=== PATIENT | female | born 1970 | race Caucasian/White ===

== ENCOUNTER → 2016-06-25 | Outpatient (REF) | payer OTHER ==
[2016-06-25 12:53] LABS: ANION GAP 9 MEQ/L (8-16); BLOOD UREA NITROGEN 15 MG/DL (7-18); CALCIUM LEVEL 9.2 MG/DL (8.5-10.1); CARBON DIOXIDE LEVEL 30 MEQ/L (21-32); CHLORIDE LEVEL 103 MEQ/L (98-107); CREATININE FOR GFR 1.05 MG/DL (0.55-1.02); GLOMERULAR FILTRATION RATE > 60.0 (>58); GLUCOSE, FASTING 87 MG/DL (70-105); POTASSIUM SERUM 4.6 MEQ/L (3.5-5.1); SODIUM LEVEL 142 MEQ/L (136-145)
== END | disposition home or self-care (01) ==
LOC: M SFHCPLAZ 09:30
PROVIDERS: ATTEND Physician Assistant
DX: B36.0 Pityriasis versicolor (principal); F41.9 Anxiety disorder, unspecified

== ENCOUNTER → 2016-10-24 | Outpatient (REF) | payer OTHER ==
[2016-10-24 11:38] LABS: ALBUMIN/GLOBULIN RATIO 1.14 (1.00-1.93); BILIRUBIN,TOTAL 0.4 MG/DL (0.2-1.0); CALCIUM LEVEL 8.8 MG/DL (8.5-10.1); CREATININE FOR GFR 1.07 MG/DL (0.55-1.02); GLOMERULAR FILTRATION RATE 58.8 (>58); POTASSIUM SERUM 4.6 MEQ/L (3.5-5.1); TOTAL PROTEIN 7.5 GM/DL (6.4-8.2)
== END ==
LOC: M SFHCPLAZ 08:37
PROVIDERS: ATTEND Physician Assistant
DX: E78.2 Mixed hyperlipidemia (principal); R73.09 Other abnormal glucose; E55.9 Vitamin D deficiency, unspecified

== ENCOUNTER → 2017-01-17 | Outpatient (REF) | payer OTHER ==
[2017-01-17 12:47] LABS: ANION GAP 6 MEQ/L (8-16); BLOOD UREA NITROGEN 17 MG/DL (7-18); CALCIUM LEVEL 8.3 MG/DL (8.5-10.1); CARBON DIOXIDE LEVEL 28 MEQ/L (21-32); CHLORIDE LEVEL 107 MEQ/L (98-107); CREATININE FOR GFR 0.99 MG/DL (0.55-1.02); GLOMERULAR FILTRATION RATE > 60.0 (>58); GLUCOSE, FASTING 83 MG/DL (70-105); POTASSIUM SERUM 4.5 MEQ/L (3.5-5.1); SODIUM LEVEL 141 MEQ/L (136-145)
== END ==
LOC: M SFHCPLAZ 09:00
PROVIDERS: ATTEND Physician Assistant
DX: I10 Essential (primary) hypertension (principal)

== ENCOUNTER → 2017-10-04 | Outpatient (REF) | payer OTHER ==
[2017-10-04 10:57] LABS: ALBUMIN/GLOBULIN RATIO 1.08 (1.00-1.93); ALKALINE PHOSPHATASE 92 U/L (45-117); ALT/SGPT 23 U/L (12-78); ANION GAP 5 MEQ/L (8-16); AST/SGOT 11 U/L (7-37); BILIRUBIN,TOTAL 0.3 MG/DL (0.2-1.0); BLOOD UREA NITROGEN 18 MG/DL (7-18); CALCIUM LEVEL 8.8 MG/DL (8.5-10.1); CARBON DIOXIDE LEVEL 30 MEQ/L (21-32); CHLORIDE LEVEL 105 MEQ/L (98-107); CHOLESTEROL LEVEL 210 MG/DL (<200); CHOLESTEROL RISK RATIO 4.772 (<5); CREATININE FOR GFR 1.08 MG/DL (0.55-1.30); FREE T4 0.88 NG/DL (0.76-1.46); GLOMERULAR FILTRATION RATE 58.1 (>58); GLUCOSE, FASTING 92 MG/DL (70-100); HDL CHOLESTEROL 44 MG/DL (>40); LDL CHOLESTEROL 108.4 MG/DL (<100); NON-HDL-C 166 MG/DL; POTASSIUM SERUM 4.6 MEQ/L (3.5-5.1); SODIUM LEVEL 140 MEQ/L (136-145); TOTAL PROTEIN 7.7 GM/DL (6.4-8.2); TRIGLYCERIDES LEVEL 288 MG/DL (<150)
[2017-10-04 11:11] LABS: MALB URINE SIEMENS 17.4 MG/L; MAU/CREAT RATIO 6.6 MCG/MG (0.0-30.0)
== END ==
LOC: M SFHCPLAZ 08:49
DX: E78.5 Hyperlipidemia, unspecified (principal); I10 Essential (primary) hypertension
CPT/HCPCS: 84443

== ENCOUNTER → 2018-05-12 | Outpatient (REF) | payer OTHER ==
[2018-05-12 12:40] LABS: ALBUMIN 3.7 GM/DL (3.2-5.2); ALT/SGPT 20 U/L (12-78); BILIRUBIN,TOTAL 0.3 MG/DL (0.2-1.0); BLOOD UREA NITROGEN 18 MG/DL (7-18); CALCIUM LEVEL 8.5 MG/DL (8.5-10.1); CARBON DIOXIDE LEVEL 29 MEQ/L (21-32); CHLORIDE LEVEL 105 MEQ/L (98-107); CREATININE FOR GFR 1.03 MG/DL (0.55-1.30); GLOMERULAR FILTRATION RATE > 60.0 (>58); GLUCOSE, FASTING 98 MG/DL (70-100); POTASSIUM SERUM 4.4 MEQ/L (3.5-5.1); SODIUM LEVEL 140 MEQ/L (136-145); TOTAL PROTEIN 7.3 GM/DL (6.4-8.2)
[2018-05-12 12:43] LABS: TOTAL 25(OH) VITAMIN D 41.8 NG/ML (30.0-100.0)
== END ==
LOC: M SFHCPLAZ 07:36
PROVIDERS: ATTEND Nurse Practitioner Family
DX: I10 Essential (primary) hypertension (principal); E55.9 Vitamin D deficiency, unspecified

== ENCOUNTER → 2018-12-29 | Outpatient (REF) | payer OTHER ==
[2018-12-29 14:19] LABS: ALBUMIN 4.1 GM/DL (3.2-5.2); BILIRUBIN,TOTAL 0.2 MG/DL (0.2-1.0); CHOLESTEROL RISK RATIO 3.977 (<5); CREATININE FOR GFR 1.06 MG/DL (0.55-1.30); GLOMERULAR FILTRATION RATE 58.9 (>58); POTASSIUM SERUM 4.4 MEQ/L (3.5-5.1); TOTAL PROTEIN 7.7 GM/DL (6.4-8.2)
[2018-12-29 14:26] LABS: TOTAL 25(OH) VITAMIN D 49.2 NG/ML (30.0-100.0)
== END ==
LOC: M SFHCPLAZ 09:12
PROVIDERS: ATTEND Nurse Practitioner Family
DX: I10 Essential (primary) hypertension (principal); E78.5 Hyperlipidemia, unspecified; E55.9 Vitamin D deficiency, unspecified

== ENCOUNTER 2019-10-23 00:38 | Emergency (ER) | payer OTHER ==
[~2019-10-23] VITALS: Ht 172.7 cm; Wt 86.0 kg
[2019-10-23 00:38] VITALS: BP 175/89
[2019-10-23] MEDS ORDERED: VITA200015 (00:51)
[2019-10-23] MEDS ORDERED: BUSP30TA (00:51)
[2019-10-23] MEDS ORDERED: PARO40TA2 (00:51)
[2019-10-23] MEDS ORDERED: LOSA50TA88 (00:51)
[2019-10-23] MEDS ORDERED: SIMV40TA20 (00:51)
[2019-10-23] MEDS ORDERED: HYDR50TA70 (00:51)
[2019-10-23] MEDS ORDERED: BACITRACIN OINTMENT 30GM TUBE TOP STA (01:04)
[2019-10-23] MEDS ORDERED: METAL LOCK LOOP XX ONE (01:12)
[2019-10-23] MEDS ORDERED: ALPRAZolam 0.5 MG TAB PO ONE ×2 (01:15→02:00)
[2019-10-23] MEDS ORDERED: FLON1SPR NARES (01:50)
== END 2019-10-23 02:33 | disposition home or self-care (01) ==
LOC: M ED 00:38
DX: F41.0 Panic disorder [episodic paroxysmal anxiety] (principal); H65.91 Unspecified nonsuppurative otitis media, right ear; T24.001A Burn of unspecified degree of unspecified site of right lower limb, except ankle and foot, initial encounter; X58.XXXA Exposure to other specified factors, initial encounter; Y92.9 Unspecified place or not applicable; I10 Essential (primary) hypertension; E78.5 Hyperlipidemia, unspecified; F17.200 Nicotine dependence, unspecified, uncomplicated; F32.9 Major depressive disorder, single episode, unspecified; Z79.899 Other long term (current) drug therapy

== ENCOUNTER 2020-04-03 13:45 | Emergency (ER) | payer OTHER ==
[~2020-04-03] VITALS: Ht 172.7 cm; Wt 91.0 kg
[~2020-04-03 13:45] MED LIST: BUSP30TA; FLON1SPR NARES; HYDR50TA70; LOSA50TA88; PARO40TA2; SIMV40TA20; VITA200015
[2020-04-03] MEDS ORDERED: ROBA750T4 PO (14:20)
[2020-04-03 14:24] VITALS: BP 142/86
[2020-04-03] MEDS ORDERED: KETO10TAB PO (14:26)
== END 2020-04-03 14:33 | disposition home or self-care (01) ==
LOC: M ED 13:45
DX: S39.012A Strain of muscle, fascia and tendon of lower back, initial encounter (principal); X50.1XXA Overexertion from prolonged static or awkward postures, initial encounter; Y92.009 Unspecified place in unspecified non-institutional (private) residence as the place of occurrence of the external cause; Y99.9 Unspecified external cause status; I10 Essential (primary) hypertension; E78.00 Pure hypercholesterolemia, unspecified; F41.9 Anxiety disorder, unspecified; F32.9 Major depressive disorder, single episode, unspecified; F17.200 Nicotine dependence, unspecified, uncomplicated; Z79.899 Other long term (current) drug therapy

== ENCOUNTER 2020-06-28 19:44 | Emergency (ER) | payer OTHER ==
[~2020-06-28] VITALS: Ht 172.7 cm; Wt 94.5 kg
[~2020-06-28 19:44] MED LIST changes: +KETO10TAB PO; +ROBA750T4 PO
--- OUTSIDE RECORDS SUMMARY | 2020-06-28 19:52 | CCD ---
Author Author [facility] Organization [facility] Address Unknown Phone Unavailable Care Team Providers Care Law Enforcement Instructor Name Role Phone Olga Burgess Unavailable PROBLEMS Type Condition ICD9-CM Code [id number] Code Onset Dates Condition S tatus SNOMED Code Notes Problem Elevated blood pressure I10 Active 55220082 Problem Allergic rhinitis, unspecifi ed allergic rhinitis trigger, unspecified rhinitis seasonality J30.9 Active 85122369 Problem Dry eyes, bilateral H04.123 Active 197387968 Problem Nicotine dependence, cigarettes, uncomplicated F17 .210 Active 85359533 Problem Vitamin D deficiency E55.9 Active 74353771 Problem HTN (hypertension) I10 Active 79605363 Problem Hyperlipidemia, unspecified hyperlipidemia type E7 8.5 Active 32154377 Problem Depression, unspecified depression type F32.9 Active 99051318 ALLERGIES Allergen (clinical drug ingredient) Drug/Non Drug Allergy do cumented on EMR Reaction Allergy Type Onset Date Status chlorthalidone Chlorthalidone([facility] Code:[address]-48) palpatations Drug Allergy Active ENCOUNTERS from 1970 to 2020-04-12 Encounter Location Date Provider Diagnosis [address] [place] [address] Mar, Olga Aditya IMMUNIZATIONS Vaccine Route Administration Date Status Influenza (6mo & up) Fluzone Unknown Jun 18, 2016 Oth ers Influenza (6mo & up) Fluzone Unknown Mar 07, 2016 Oth ers SOCIAL HISTORY Tobacco Use: Social History Observation Description Date Details (start date - stop date) Current Smoker Sex Assigned At : Social History Observation Description Sex Assigned At Unknown Audit Question Answer Notes Total Score: 1 Interpretation: Alcohol Education Language: Question Answer Notes Languages spoken: Syrian Anglican: Question Answer Notes Anglican 33 None Sexual Hx: Question Answer Notes Had sex in the last 12 months (vaginal, oral, or anal)? No LMP: 07/10/2019 Have you ever had an STD? Yes Chlamydia? Yes Drug and Alcohol Question Answer Notes Total Score: 0 Interpretation: No problems reported Alcohol Screening: Question Answer Notes Did you have a drink containing alcohol in the past year? Ye s Points 2 Interpretation Negative How often did you have six or more drinks on one occas ion in the past year? Less than monthly (1 point) How many drinks did you have on a typica l day when you were drinking in the past year? 1 or 2 (0 points) How often did you have a drink containing alcohol in t he past year? Monthly or less (1 point) Tobacco Use: Question Answer Notes Are you a: current smoker Patient counseled on the dangers of tobacco use and urged to quit: 12/29/2018 How many cigarettes a day do you smoke? 11-20 Are you interested in quitting? Not ready to quit Counseled the patient on smoking effects, education provided 12/29/2018 REASON FOR REFERRAL No Information VITAL SIGNS No information MEDICATIONS Medication SIG (Take, Route, Frequency, Duration) Notes Start Da te End Date Status Losartan Potassium 50 MG 1 tablet Orally Once a day for 90 day(s) Active HydrOXYzine HCl 25 MG 1 tablet as needed Orally every 8 hrs Active Simvastatin 40 MG 1 tablet in the evening Orally once a day for 30 Active BusPIRone HCl 10 MG 1 tablet Orally Twice a day Active Vitamin D3 Super Strength 50 MCG (2000 UT) TAKE 1 TABL ET BY MOUTH ONCE DAILY for 30 Active Artificial Tears 0.2-0.2-1 % 1-2 drops in both eyes Op hthalmic four times daily as needed for 30 Days Jul, Active Vitamin D 2000 UNIT 1 tab(s) Orally daily for 30 Active Paroxetine HCl 40 MG 1 tablet in the morning Orally Once a day Active PROCEDURES No Information RESULTS No Results REASON FOR VISIT No show MEDICAL (GENERAL) HISTORY Type Description Date Medical History Panic disorder/anxiety/depression Medical History Depressive disorder, not elsewhere class ified Medical History HTN Medical History HLD Medical History Vitamin D deficiency Surgical History tubal ligation 2001 Hospitalization History childbirth 1988 Hospitalization History childbirth 1990 Hospitalization History childbirth 2000 Hospitalization History childbirth 2001 Goals Section No Information Health Concerns No Information MEDICAL EQUIPMENT No Information MENTAL STATUS No Information FUNCTIONAL STATUS No Information ASSESSMENTS No Information PLAN OF TREATMENT Medication Medication Name Sig Start Date Stop Date Losartan Potassium 50 MG 1 tablet Orally Once a day for 90 day(s ) Artificial Tears 0.2-0.2-1 % 1-2 drops in both eyes Op hthalmic four times daily as needed for 30 Days Jul, Simvastatin 40 MG 1 tablet in the evening Orally once a day for 30 Vitamin D3 Super Strength 50 MCG (1999) TAKE 1 TABL ET BY MOUTH ONCE DAILY for 30 Insurance Providers Payer Name Payer Address Payer Phone Insured Name Patient Relati onship to Insured Coverage Start Date Coverage End Date [facility] [address] [place] [address] KIKI BAHENA
--- OUTSIDE RECORDS SUMMARY | 2020-06-28 19:52 | CCD ---
Author Author [facility] Organization [facility] Address Unknown Phone Unavailable Care Team Providers Care Computer Systems Auditor Name Role Phone Olga Burgess Unavailable PROBLEMS Type Condition ICD9-CM Code [id number] Code Onset Dates Condition S tatus SNOMED Code Notes Problem Elevated blood pressure I10 Active 02447190 Problem Allergic rhinitis, unspecifi ed allergic rhinitis trigger, unspecified rhinitis seasonality J30.9 Active 40726770 Problem Dry eyes, bilateral H04.123 Active 844340237 Problem Nicotine dependence, cigarettes, uncomplicated F17 .210 Active 65608294 Problem Vitamin D deficiency E55.9 Active 95829686 Problem HTN (hypertension) I10 Active 29636191 Problem Hyperlipidemia, unspecified hyperlipidemia type E7 8.5 Active 23408251 Problem Depression, unspecified depression type F32.9 Active 08822747 ALLERGIES Allergen (clinical drug ingredient) Drug/Non Drug Allergy do cumented on EMR Reaction Allergy Type Onset Date Status chlorthalidone Chlorthalidone([facility] Code:[address]-92) palpatations Drug Allergy Active ENCOUNTERS from 1970 to 2020-04-05 Encounter Location Date Provider Diagnosis [facility] [address] [place] [address] Mar, Olga Aditya IMMUNIZATIONS Vaccine Route Administration [...] Education Language: Question Answer Notes Languages spoken: South Korean Catholic: Question Answer Notes Catholic 33 None Sexual Hx: Question Answer Notes [...] MEDICATIONS Medication SIG (Take, Route, Frequency, Duration) Start Date En d Date Status Losartan Potassium 50 MG 1 [...] Information RESULTS No Results REASON FOR VISIT ed visit [facility] d/c 04/03; low back pain MEDICAL (GENERAL) HISTORY Type Description Date Medical [...] 30 Vitamin D3 Super Strength 50 MCG (1999 UT) TAKE 1 TABL ET BY MOUTH ONCE DAILY for 30 Next Appt Details Provider Name:Olga Burgess 2020-04-12 07 :15:00 AM, [address] [place] [address], [phone], Insurance Providers Payer Name Payer Address Payer Phone Insured Name Patient Relati onship to Insured Coverage Start Date Coverage End Date [facility] [address] [place] [address] KIKI BAHENA
--- OUTSIDE RECORDS SUMMARY | 2020-06-28 19:52 | CCD ---
Author Author [facility] Organization [facility] Address Unknown Phone Unavailable Care Team Providers Care Geometry Professor Name Role Phone Olga Burgess Unavailable PROBLEMS Type Condition ICD9-CM Code PER42-BG Code Onset Dates Condition S tatus SNOMED Code Notes Problem Elevated blood pressure I10 Active 71604842 Problem Allergic rhinitis, unspecifi ed allergic rhinitis trigger, unspecified rhinitis seasonality J30.9 Active 35167396 Problem Dry eyes, bilateral H04.123 Active 563692600 Problem Nicotine dependence, cigarettes, uncomplicated F17 .210 Active 26320273 Problem Vitamin D deficiency E55.9 Active 65922473 Problem HTN (hypertension) I10 Active 73742697 Problem Hyperlipidemia, unspecified hyperlipidemia type E7 8.5 Active 19106538 Problem Depression, unspecified depression type F32.9 Active 01215208 ALLERGIES Allergen (clinical drug ingredient) Drug/Non Drug Allergy do cumented on EMR Reaction Allergy Type Onset Date Status chlorthalidone Chlorthalidone([facility] Code:[address]-03) palpatations Drug Allergy Active ENCOUNTERS from 1970 to 2020-05-05 Encounter Location Date Provider Diagnosis [facility] [address] [place] [address] Apr, Olga Aditya IMMUNIZATIONS Vaccine Route Administration Date [...] Education Language: Question Answer Notes Languages spoken: Burundian Mu-Ism: Question Answer Notes Mu-Ism 33 None Sexual Hx: Question Answer Notes [...] Notes Start Da te End Date Status Vitamin D3 Super Strength 50 MCG (2000 UT) TAKE 1 TABL ET BY MOUTH ONCE DAILY for 90 day(s) Active BusPIRone HCl 10 MG 1 tablet Orally Twice a day Active Paroxetine HCl 40 MG 1 tablet in the morning Orally Once a day Active Simvastatin 40 MG 1 tablet in the evening Orally once a day for 90 da y(s) Active Vitamin D 2000 UNIT 1 tab(s) Orally daily for 30 Active Artificial Tears 0.2-0.2-1 % 1-2 drops in both eyes Op hthalmic four times daily as needed for 30 Days Jul, Active HydrOXYzine HCl 25 MG 1 tablet as needed Orally every 8 hrs Active Losartan Potassium 50 MG 1 tablet Orally Once a day for 90 day(s) Active PROCEDURES No Information RESULTS No Results REASON FOR VISIT Vitamin D3 Super Strength 50 MCG (2000 UT), Losatan 50MG, Simvastatin 40MG MEDICAL (GENERAL) HISTORY Type Description Date Medical [...] Medication Name Sig Start Date Stop Date Vitamin D3 Super Strength 50 MCG (1999) TAKE 1 TABL ET BY MOUTH ONCE DAILY for 90 day(s) Artificial Tears 0.2-0.2-1 % 1-2 drops in both eyes Op hthalmic four times daily as needed for 30 Days Jul, Simvastatin 40 MG 1 tablet in the evening Orally once a day for 90 day(s) Losartan Potassium 50 MG 1 tablet Orally Once a day for 90 day(s ) Next Appt Details Provider Name:Olga Burgess, 2020-05-17 10 :00:00 AM, [address] [place] [address], [phone], Insurance Providers Payer Name Payer Address Payer Phone Insured Name Patient Relati onship to Insured Coverage Start Date Coverage End Date [facility] [address] [place] [phone] KIKI BAHENA self
--- OUTSIDE RECORDS SUMMARY | 2020-06-28 19:52 | CCD ---
Author Author [facility] Address Unknown Phone Unavailable Support Name Relationship Address Phone UE Next Of Kin Unknown Unavailable SELF EMPLOYED Next Of Kin Unknown RUCHI BAHENA Next Of Kin [id number] [place] [id number] FILIBERTO NASH Next Of Kin [address] [place] [id number] Re-disclosure Warning The records that you are about to access may contain information from federally-assisted alcohol or drug abuse programs. If such information is present, then the following federally mandated warning applies: This information has been disclosed to you from records protected by federal confidentiality rules (42 CFR part 2). The federal rules prohibit you from making any further disclosure of this information unless further disclosure is expressly permitted by the written consent of the person to whom it pertains or as otherwise permitted by 42 CFR part 2. A general authorization for the release of medical or other information is NOT sufficient for this purpose. The Federal rules restrict any use of the information to criminally investigate or prosecute any alcohol or drug abuse patient.The records that you are about to access may contain highly sensitive health information, the redisclosure of which is protected by Article 27-F of the [facility] Public Health law. If you continue you may have access to information: Regarding HIV / AIDS; Provided by facilities licensed or operated by the [facility] Office of Mental Health; or Provided by the [facility] Office for People With Developmental Disabilities. If such information is present, then the following [facility] mandated warning applies: This information has been disclosed to you from confidential records which are protected by state law. State law prohibits you from making any further disclosure of this information without the specific written consent of the person to whom it pertains, or as otherwise permitted by law. Any unauthorized further disclosure in violation of state law may result in a fine or residential sentence or both. A general authorization for the release of medical or other information is NOT sufficient authorization for further disc losure. Allergies and Adverse Reactions Type Description Substance Reaction Status Data Source(s ) Drug allergy Chlorthalidone Chlorthalidone palpatations Active e [facility] Encounters Encounter Providers Location Date Indications Data Source(s ) Unknown [address] [facility] [place] [address] 05/04/2020 12:00:00 AM EST eCW1 ([facility]) Unknown [address] [facility] [place] [address] 04/12/2020 12:00:00 AM EST eCW1 ([facility]) Unknown [address] [facility] [place] [address] 04/04/2020 12:00:00 AM EST eCW1 ([facility]) [facility] [address] [facility] [place] [address] 01/28/2020 12:00:00 AM EDT eCW1 ([facility]) Unknown [address] [facility] [place] [address] 11/03/2019 12:00:00 AM EDT eCW1 ([facility]) Unknown [address] [facility] [place] [address] 11/02/2019 12:00:00 AM EDT eCW1 ([facility]) Unknown [address] [facility] [place] [address] 10/27/2019 12:00:00 AM EDT eCW1 ([facility]) [facility] [address] [facility] [place] [address] 07/30/2019 12:00:00 AM EST eCW1 ([facility]) [facility] [address] [facility] [place] [address] 07/10/2019 12:00:00 AM EST eCW1 ([facility]) [facility] [address] [facility] [place] [address] 06/19/2019 12:00:00 AM EST eCW1 ([facility]) Medications Medication Brand Name Start Date Product Form Dose Route Admi nistrative Instructions Pharmacy Instructions Status Indications Reaction Description Data Source(s) 750 mg 04/03/2020 12:00:00 AM EST tablet 20 TAKE ONE TABLET BY MOUTH AT BEDTIME TAKE ONE TABLET BY MOUTH AT BEDTIME SOLD: 04/03/2020 [facility] 10 mg 04/03/2020 12:00:00 AM EST tablet 20 TAKE ONE TABLET BY MOUTH EVERY 6 HOURS NEEDED FOR PAIN TAKE ONE TABLET BY MOUTH EVERY 6 HOURS A S NEEDED FOR PAIN SOLD: 04/03/2020 [facility] 1 mg 03/13/2020 12:00:00 AM EDT tablet 4 TAKE ONE TABLET BY MOUTH THE NIGHT BEFORE AND 1 TABLET AN HOUR BEFORE APPOINTMENT MAXIMUM DAILY DOSE = 2 TAKE ONE TABLET BY MOUTH THE NIGHT BEFORE AND 1 TABLET AN HOUR BEFORE APPOINTMENT MAXIMUM DAILY DOSE = 2 SOLD: 03/13/2020 [facility] 500 mg 03/12/2020 12:00:00 AM EDT tablet 22 TAKE TWO TABLETS NOW, THEN TAKE ONE TABLET BY MOUTH THREE TIMES A DAY TAKE TWO TABLETS NOW, THEN TAKE ONE TABL ET BY MOUTH THREE TIMES A DAY SOLD: 03/13/2020 [facility] 50 mg 03/07/2020 12:00:00 AM EDT tablet 120 TAKE ONE TABLET BY MOUTH FOUR TIMES A DAY NEEDED FOR ANXIETY TAKE ONE TABLET BY MOUTH FOUR TIMES A DA Y NEEDED FOR ANXIETY SOLD: 03/13/2020 [facility] 50 mg 03/07/2020 12:00:00 AM EDT tablet 120 TAKE ONE TABLET BY MOUTH FOUR TIMES A DAY NEEDED FOR ANXIETY TAKE ONE TABLET BY MOUTH FOUR TIMES A DA Y NEEDED FOR ANXIETY SOLD: 04/18/2020 [facility] 30 mg 03/07/2020 12:00:00 AM EDT tablet 60 TAKE ONE TABLET BY MOUTH TWICE A DAY TAKE ONE TABLET BY MOUTH TWICE A DAY SOLD: 03/13/2020 [facility] 30 mg 03/07/2020 12:00:00 AM EDT tablet 60 TAKE ONE TABLET BY MOUTH TWICE A DAY TAKE ONE TABLET BY MOUTH TWICE A DAY SOLD: 04/18/2020 [facility] Paroxetine Hydrochloride 40 MG Oral Tablet PAROXETINE HCL 02/08/2020 12:00:00 AM EDT tablet 30 TAKE ONE TABLET BY MOUTH ROXANE DAY TAKE ONE TABLET BY MOUTH EVERY DAY SOLD: 02/10/2020 [facility] Paroxetine Hydrochloride 40 MG Oral Tablet PAROXETINE HCL 02/08/2020 12:00:00 AM EDT tablet 30 TAKE ONE TABLET BY MOUTH ROXANE TAKE ONE TABLET BY MOUTH EVERY DAY SOLD: 03/13/2020 [facility] 50 mg 01/29/2020 12:00:00 AM EDT tablet 30 TAKE ONE TABLET BY MOUTH EVERY DAY TAKE ONE TABLET BY MOUTH EVERY DAY SOLD: 04/03/2020 [facility] 50 mcg (2,000 unit) 01/29/2020 12:00:00 AM EDT tablet 30 TAKE ONE TABLET BY MOUTH EVERY DAY TAKE ONE TABLET BY MOUTH EVERY DAY SOLD: 03/05/2020 [facility] 50 mcg (2,000 unit) 01/29/2020 12:00:00 AM EDT tablet 30 TAKE ONE TABLET BY MOUTH EVERY DAY TAKE ONE TABLET BY MOUTH EVERY DAY SOLD: 01/31/2020 [facility] 40 mg 01/29/2020 12:00:00 AM EDT tablet 30 TAKE ONE TABLET BY MOUTH EVERY DAY TAKE ONE TABLET BY MOUTH EVERY DAY SOLD: 01/31/2020 [facility] 50 mcg (2,000 unit) 01/29/2020 12:00:00 AM EDT tablet 30 TAKE ONE TABLET BY MOUTH EVERY DAY TAKE ONE TABLET BY MOUTH EVERY DAY SOLD: 04/03/2020 [facility] 50 mg 01/29/2020 12:00:00 AM EDT tablet 30 TAKE ONE TABLET BY MOUTH EVERY DAY TAKE ONE TABLET BY MOUTH EVERY DAY SOLD: 01/31/2020 [facility] 40 mg 01/29/2020 12:00:00 AM EDT tablet 30 TAKE ONE TABLET BY MOUTH EVERY DAY TAKE ONE TABLET BY MOUTH EVERY DAY SOLD: 03/05/2020 [facility] 40 mg 01/29/2020 12:00:00 AM EDT tablet 30 TAKE ONE TABLET BY MOUTH EVERY DAY TAKE ONE TABLET BY MOUTH EVERY DAY SOLD: 04/03/2020 [facility] 50 mg 01/29/2020 12:00:00 AM EDT tablet 30 TAKE ONE TABLET BY MOUTH EVERY DAY TAKE ONE TABLET BY MOUTH EVERY DAY SOLD: 03/05/2020 [facility] 50 mg 11/30/2019 12:00:00 AM EDT tablet 120 TAKE ONE TABLET BY MOUTH FOUR TIMES A DAY NEEDED FOR ANXIETY TAKE ONE TABLET BY MOUTH FOUR TIMES A DA Y NEEDED FOR ANXIETY SOLD: 12/01/2019 [facility] 50 mg 11/30/2019 12:00:00 AM EDT tablet 120 TAKE ONE TABLET BY MOUTH FOUR TIMES A DAY NEEDED FOR ANXIETY TAKE ONE TABLET BY MOUTH FOUR TIMES A DA Y NEEDED FOR ANXIETY SOLD: 01/04/2020 [facility] 40 mg 11/30/2019 12:00:00 AM EDT tablet 30 TAKE ONE TABLET BY MOUTH EVERY EVENING TAKE ONE TABLET BY MOUTH EVERY EVENING SOLD: 01/04/2020 [facility] 40 mg 11/30/2019 12:00:00 AM EDT tablet 30 TAKE ONE TABLET BY MOUTH EVERY EVENING TAKE ONE TABLET BY MOUTH EVERY EVENING SOLD: 12/01/2019 [facility] 40 mg 11/30/2019 12:00:00 AM EDT tablet 30 TAKE ONE TABLET BY MOUTH EVERY DAY TAKE ONE TABLET BY MOUTH EVERY DAY SOLD: 01/04/2020 [facility] 40 mg 11/30/2019 12:00:00 AM EDT tablet 30 TAKE ONE TABLET BY MOUTH EVERY DAY TAKE ONE TABLET BY MOUTH EVERY DAY SOLD: 12/01/2019 [facility] 50 mg 11/03/2019 12:00:00 AM EDT tablet 30 TAKE ONE TABLET BY MOUTH EVERY DAY TAKE ONE TABLET BY MOUTH EVERY DAY SOLD: 01/04/2020 [facility] 50 mg 11/03/2019 12:00:00 AM EDT tablet 30 TAKE ONE TABLET BY MOUTH EVERY DAY TAKE ONE TABLET BY MOUTH EVERY DAY SOLD: 11/03/2019 [facility] 50 mg 11/03/2019 12:00:00 AM EDT tablet 30 TAKE ONE TABLET BY MOUTH EVERY DAY TAKE ONE TABLET BY MOUTH EVERY DAY SOLD: 12/01/2019 [facility] 50 mcg/actuation 2019 12:00:00 AM EDT spray,suspension 16 SPRAY 2 SPRAYS IN EACH NOSTRIL ONCE DAILY SPRAY 2 SPRAYS IN EACH NOSTRIL ONCE DAILY SOLD: 10/30/2019 [facility] Paroxetine Hydrochloride 40 MG Oral Tablet PAROXETINE HCL 10/11/2019 12:00:00 AM EDT tablet 30 TAKE ONE TABLET BY MOUTH ROXANE DAY TAKE ONE TABLET BY MOUTH EVERY DAY SOLD: 04/18/2020 [facility] 40 mg 10/11/2019 12:00:00 AM EDT tablet 30 TAKE ONE TABLET BY MOUTH EVERY DAY TAKE ONE TABLET BY MOUTH EVERY DAY SOLD: 10/13/2019 [facility] buspirone hydrochloride 30 MG Oral Tablet BUSPIRONE HCL 10/05/2019 12:00:00 AM EDT tablet 60 TAKE ONE TABLET BY MOUTH TWI CE A DAY TAKE ONE TABLET BY MOUTH TWICE A DAY SOLD: 10/13/2019 [facility] 50 mcg (2,000 unit) 09/12/2019 12:00:00 AM EDT tablet 30 TAKE ONE TABLET BY MOUTH EVERY DAY TAKE ONE TABLET BY MOUTH EVERY DAY SOLD: 09/16/2019 [facility] 50 mcg (2,000 unit) 09/12/2019 12:00:00 AM EDT tablet 30 TAKE ONE TABLET BY MOUTH EVERY DAY TAKE ONE TABLET BY MOUTH EVERY DAY SOLD: 10/13/2019 [facility] 40 mg 08/18/2019 12:00:00 AM EDT tablet 30 TAKE ONE TABLET BY MOUTH EVERY DAY TAKE ONE TABLET BY MOUTH EVERY DAY SOLD: 09/23/2019 [facility] 40 mg 08/18/2019 12:00:00 AM EDT tablet 30 TAKE ONE TABLET BY MOUTH EVERY DAY TAKE ONE TABLET BY MOUTH EVERY DAY SOLD: 08/23/2019 [facility] Glycerin 2 MG/ML / hypromellose 2 MG/ML / Polyethylene Glycol 400 10 MG/ML Ophthalmic Solution Artificial Tears 0.2-0.2-1 % Artificial Tears 0.2-0.2-1 % 07/30/2019 12:00:00 AM EST active Artificial Tears 0.2-0.2-1 % [facility] Glycerin 2 MG/ML / hypromellose 2 MG/ML / Polyethylene Glycol 400 10 MG/ML Ophthalmic Solution Artificial Tears 0.2-0.2-1 % Artificial Tears 0.2-0.2-1 % 07/30/2019 12:00:00 AM EST active 1-2 drops in both eyes eCW1 ([facility]) Glycerin 2 MG/ML / hypromellose 2 MG/ML / Polyethylene Glycol 400 10 MG/ML Ophthalmic Solution Artificial Tears 0.2-0.2-1 % Artificial Tears 0.2-0.2-1 % 07/30/2019 12:00:00 AM EST active Artificial Tears 0.2-0.2-1 % eCW1 [facility] Glycerin 2 MG/ML / hypromellose 2 MG/ML / Polyethylene Glycol 400 10 MG/ML Ophthalmic Solution Artificial Tears 0.2-0.2-1 % Artificial Tears 0.2-0.2-1 % 07/30/2019 12:00:00 AM EST active Artificial Tears 0.2-0.2-1 % eCW1 [facility]) Glycerin 2 MG/ML / hypromellose 2 MG/ML / Polyethylene Glycol 400 10 MG/ML Ophthalmic Solution Artificial Tears 0.2-0.2-1 % Artificial Tears 0.2-0.2-1 % 07/30/2019 12:00:00 AM EST active Artificial Tears 0.2-0.2-1 % eCW1 [facility] Glycerin 2 MG/ML / hypromellose 2 MG/ML / Polyethylene Glycol 400 10 MG/ML Ophthalmic Solution Artificial Tears 0.2-0.2-1 % Artificial Tears 0.2-0.2-1 % 07/30/2019 12:00:00 AM EST active Artificial Tears 0.2-0.2-1 % [facility]CW[facility] buspirone hydrochloride 30 MG Oral Tablet BUSPIRONE HCL 07/22/2019 12:00:00 AM EST tablet 60 TAKE ONE TABLET BY MOUTH TWI CE A DAY TAKE ONE TABLET BY MOUTH TWICE A DAY SOLD: 07/22/2019 [facility] 50 mg 07/21/2019 12:00:00 AM EST tablet 120 TAKE ONE TABLET BY MOUTH FOUR TIMES A DAY NEEDED FOR ANIXETY TAKE AT LEST 4 HOURS APART TAKE ONE TABLET BY MOUTH FOUR TIMES A DAY NEEDED FOR ANIXETY TAKE AT LEST 4 HOURS APART SOLD: 07/22/2019 [facility] 40 mg 07/11/2019 12:00:00 AM EST tablet 30 TAKE ONE TABLET BY MOUTH EVERY EVENING TAKE ONE TABLET BY MOUTH EVERY EVENING SOLD: 08/15/2019 [facility] 50 mcg (2,000 unit) 07/11/2019 12:00:00 AM EST tablet 30 TAKE 1 TABLET BY MOUTH ONCE DAILY TAKE 1 TABLET BY MOUTH ONCE DAILY SOLD: 07/13/2019 [facility] Simvastatin 40 MG Oral Tablet SIMVASTATIN 07/11/2019 12:00:00 AM EST tablet 30 TAKE ONE TABLET BY MOUTH EVERY EVENING TAKE ONE TABLET BY MI UT EVERY EVENING SOLD: 07/13/2019 [facility] 50 mcg (2,000 unit) 07/11/2019 12:00:00 AM EST tablet 30 TAKE 1 TABLET BY MOUTH ONCE DAILY TAKE 1 TABLET BY MOUTH ONCE DAILY SOLD: 08/15/2019 [facility] buspirone hydrochloride 30 MG Oral Tablet BUSPIRONE HCL 06/23/2019 12:00:00 AM EST tablet 60 TAKE ONE TABLET BY MOUTH TWI CE A DAY TAKE ONE TABLET BY MOUTH TWICE A DAY SOLD: 07/07/2019 [facility] 600 mg 06/21/2019 12:00:00 AM EST tablet 40 TAKE ONE TABLET BY MOUTH FOUR TIMES A DAY NEEDED FOR 10 DAYS TAKE ONE TABLET BY MOUTH FOUR TIMES A DA Y NEEDED FOR 10 DAYS SOLD: 06/21/2019 [facility] 875 mg 06/21/2019 12:00:00 AM EST tablet 20 TAKE ONE TABLET BY MOUTH EVERY 12 HOURS FOR 10 DAYS TAKE ONE TABLET BY MOUTH EVERY 12 HOURS FOR 10 DAYS SO LD: 06/21/2019 [facility] Losartan Potassium 50 MG Oral Tablet LOSARTAN POTASSIUM 12:00:00 AM EST tablet 30 TAKE ONE TABLET BY MOUTH ROXANE DAY TAKE ONE TABLET BY MOUTH EVERY DAY SOLD: 06/21/2019 [facility] Losartan Potassium 50 MG Oral Tablet LOSARTAN POTASSIUM 12:00:00 AM EST tablet 30 TAKE ONE TABLET BY MOUTH ROXANE DAY TAKE ONE TABLET BY MOUTH EVERY DAY SOLD: 07/22/2019 [facility] Losartan Potassium 50 MG Oral Tablet LOSARTAN POTASSIUM 12:00:00 AM EST tablet 30 TAKE ONE TABLET BY MOUTH ROXANE DAY TAKE ONE TABLET BY MOUTH EVERY DAY SOLD: 08/23/2019 [facility] 50 mg 06/20/2019 12:00:00 AM EST tablet 30 TAKE ONE TABLET BY MOUTH EVERY DAY TAKE ONE TABLET BY MOUTH EVERY DAY SOLD: 09/23/2019 [facility] 50 mg 06/17/2019 12:00:00 AM EST tablet 90 TAKE ONE TABLET BY MOUTH THREE TIMES A DAY NEEDED TAKE ONE TABLET BY MOUTH THREE TIMES A DAY NEEDED S OLD: 06/17/2019 [facility] 40 mg 06/11/2019 12:00:00 AM EST tablet 30 TAKE ONE TABLET BY MOUTH EVERY DAY TAKE ONE TABLET BY MOUTH EVERY DAY SOLD: 07/13/2019 [facility] buspirone hydrochloride 10 MG Oral Tablet BUSPIRONE HCL 06/11/2019 12:00:00 AM EST tablet 120 TAKE TWO TABLETS BY MOUTH TW ICE A DAY TAKE TWO TABLETS BY MOUTH TWICE A DAY SOLD: 06/17/2019 [facility] buspirone hydrochloride 10 MG Oral Tablet BUSPIRONE HCL 06/11/2019 12:00:00 AM EST tablet 120 TAKE TWO TABLETS BY MOUTH TW ICE A DAY TAKE TWO TABLETS BY MOUTH TWICE A DAY SOLD: 07/13/2019 [facility] 40 mg 06/11/2019 12:00:00 AM EST tablet 30 TAKE ONE TABLET BY MOUTH EVERY DAY TAKE ONE TABLET BY MOUTH EVERY DAY SOLD: 06/17/2019 [facility] Losartan Potassium 50 MG Oral Tablet LOSARTAN POTASSIUM 12:00:00 AM EST tablet 30 TAKE ONE TABLET BY MOUTH ROXANE DAY TAKE ONE TABLET BY MOUTH EVERY DAY SOLD: 05/24/2019 [facility] Insurance Providers Payer name Policy type / Coverage type Policy ID Covered constitution party ID Covered constitution party's relationship to everett Policy [place] Plan Information [facility] [id number] SP [id number] [facility] [id number] SP [id number] [facility] [id number] SP [id number] [facility] [id number] SP [id number] ANS-Medicaid [id number] ANSI-Medicaid [id number] [facility] PLAN [facility] [id number] SP [id number] [facility] [id number] SP [id number] [facility] O [id number] S [id number] MEDICAID [id number] SP [id number] Problems, Conditions, and Diagnoses Code Display Name Description Problem Type Effective Dates Data Source(s) F17.210 [id number] Nicotine dependence, cigarettes, uncompli cated Problem 07/30/2019 12:00:00 AM EST [facility] H04.123 [id number] Dry eyes, bilateral Problem 07/30/2019 12:00 :00 AM EST [facility]1 [facility]) F17.210 [id number] Nicotine dependence, cigarettes, uncompli cated Problem 07/30/2019 12:00:00 AM EST eCW1 [facility]) H04.123 [id number] Dry eyes, bilateral Problem 07/30/2019 12:00 :00 AM EST eCW1 [facility]) Surgeries/Procedures Procedure Description Date Indications Data Source(s) BEHAV CHNG SMOKING 3-10 MIN 07/30/2019 12:00:00 AM EST eCW1 ([facility]) Social History Code Duration Value Status Description Data Source(s ) Smoking 07/30/2019 12:00:00 AM EST Current Smoker completed Curre nt Smoker eCW1 ([facility]) Smoking 07/30/2019 12:00:00 AM EST Current Smoker completed Curre nt Smoker eCW1 ([facility]) Smoking 07/30/2019 12:00:00 AM EST Current Smoker completed Curre nt Smoker eCW1 ([facility]) Smoking 07/30/2019 12:00:00 AM EST Current Smoker completed Curre nt Smoker eCW1 ([facility]) Smoking 07/30/2019 12:00:00 AM EST Current Smoker completed Curre nt Smoker eCW1 ([facility]) Vital Signs ID Date Data Source UNK Name Value Range Interpretation Code Description Data Source(s) Diastolic blood pressure 80 mm[Hg] 80 mm[Hg] eCW1 [facility] Systolic blood pressure 128 mm[Hg] 128 mm[Hg] e CW1 ([facility]) Body temperature 98.3 [degF] 98.3 [degF] eCW1 [facility] Respiratory rate 18 /min 18 /min eCW1 ([facility]) Heart rate 101 /min 101 /min eCW1 ([facility]) Body mass index (BMI) [Ratio] 29.34 kg/m2 29.34 kg/m2 W1 ([facility]) Body height 68 [in_us] 68 [in_us] eCW1 ([facility]) Body weight Measured 193 [lb_av] 193 [lb_av] eC W1 ([facility]) Patient Treatment Plan of Care Planned Activity Planned Date Details Description Data Source (s) Glycerin 2 MG/ML / hypromellose 2 MG/ML / Polyethylene Glycol 400 10 MG/ML Ophthalmic Solution 07/30/2019 12:00:00 AM EST e CW1 ([facility]) Glycerin 2 MG/ML / hypromellose 2 MG/ML / Polyethylene Glycol 400 10 MG/ML Ophthalmic Solution 07/30/2019 12:00:00 AM EST e CW1 ([facility]) Glycerin 2 MG/ML / hypromellose 2 MG/ML / Polyethylene Glycol 400 10 MG/ML Ophthalmic Solution 07/30/2019 12:00:00 AM EST e CW1 ([facility]) Glycerin 2 MG/ML / hypromellose 2 MG/ML / Polyethylene Glycol 400 10 MG/ML Ophthalmic Solution 07/30/2019 12:00:00 AM EST e CW1 ([facility]) Glycerin 2 MG/ML / hypromellose 2 MG/ML / Polyethylene Glycol 400 10 MG/ML Ophthalmic Solution 07/30/2019 12:00:00 AM EST e CW1 ([facility]) Glycerin 2 MG/ML / hypromellose 2 MG/ML / Polyethylene Glycol 400 10 MG/ML Ophthalmic Solution 07/30/2019 12:00:00 AM EST e CW1 [facility])
[2020-06-28] MEDS ORDERED: ESCI5SOL3 PO (19:56)
--- OUTSIDE RECORDS SUMMARY | 2020-06-28 20:53 | CCD ---
Author Author [facility] [place] [facility] Address Unknown Phone Unavailable Support Name Relationship Address Phone DISABLED Next Of Kin Unknown Unavailable UE Next Of Kin Unknown Unavailable SELF EMPLOYED Next Of Kin Unknown RUCHI BAHENA Next Of Kin [id number] [place] [id number] FILIBERTO NASH Next Of Kin [id number] [place] [address] [id number] Re-disclosure Warning The records that you are [...] is protected by Article 27-F of the [facility] Public Health law. If you continue you may have access to information: Regarding HIV / AIDS; Provided by facilities licensed or operated by the [facility] Office of Mental Health; or Provided by the [facility] Office for People With Developmental Disabilities. If such information is present, then the following [facility] mandated warning applies: This information has been [...] law may result in a fine or fdc sentence or both. A general authorization for the release of medical or other information is NOT sufficient authorization for further disc losure. Allergies and Adverse Reactions Type Description Substance Reaction Status Data Source(s ) Drug allergy Chlorthalidone Chlorthalidone palpatations Active e CW1 (Formerly [facility]) Encounters Encounter Providers Location Date Indications Data Source(s ) Unknown [address] [facility] [address] [address] 05/04/2020 12:00:00 AM EST eCW1 ([facility]) Unknown [address] [facility] [address] [address] 04/12/2020 12:00:00 AM EST eCW1 ([facility]) Unknown [address] [facility] [place] [address] 04/04/2020 12:00:00 AM EST eCW1 ([facility]) [facility] [address] [facility] [place] [address] 01/28/2020 12:00:00 AM EDT eCW1 ([facility]) Unknown [address] [facility] [address] [place] [address] 11/03/2019 12:00:00 AM EDT eCW1 ([facility]) Unknown [address] [facility] [address] [place] [address] 11/02/2019 12:00:00 AM EDT eCW1 ([facility]) Unknown [address] [facility] [address] [place] [address] 10/27/2019 12:00:00 AM EDT eCW1 ([facility]) [facility] [address] [facility] [address] [place] [address] 07/30/2019 12:00:00 AM EST eCW1 ([facility]) [facility] [address] [facility] [address] [place] [address] 07/10/2019 12:00:00 AM EST eCW1 ([facility]) [facility] [address] [facility] [address] [address] 06/19/2019 12:00:00 AM EST eCW1 ([facility]) Medications Medication Brand Name Start [...] MOUTH THREE TIMES A DAY SOLD: 03/13/2020 [facility] 50 mg 03/07/2020 12:00:00 AM EDT [...] BY MOUTH TWICE A DAY SOLD: 04/18/2020 [facility] Paroxetine Hydrochloride 40 MG Oral [...] IN EACH NOSTRIL ONCE DAILY SOLD: 10/30/2019 [facility] Paroxetine Hydrochloride 40 MG Oral Tablet PAROXETINE HCL 10/11/2019 12:00:00 AM EDT tablet 30 TAKE ONE TABLET BY MOUTH ROXANE RY DAY TAKE ONE TABLET BY MOUTH EVERY DAY SOLD: 04/18/2020 [facility] 40 mg 10/11/2019 12:00:00 AM EDT tablet 30 TAKE ONE TABLET BY MOUTH EVERY DAY TAKE ONE TABLET BY MOUTH EVERY DAY SOLD: 10/13/2019 [facility] buspirone hydrochloride 30 MG Oral [...] EST active Artificial Tears 0.2-0.2-1 % eCW1 ([facility]ly [facility]) Glycerin 2 MG/ML / hypromellose 2 MG/ML / Polyethylene Glycol 400 10 MG/ML Ophthalmic Solution Artificial Tears 0.2-0.2-1 % Artificial Tears 0.2-0.2-1 % 07/30/2019 12:00:00 AM EST active 1-2 drops in both eyes eCW1 ([facility]) Glycerin 2 MG/ML / hypromellose 2 MG/ML / Polyethylene Glycol 400 10 MG/ML Ophthalmic Solution Artificial Tears 0.2-0.2-1 % Artificial Tears 0.2-0.2-1 % 07/30/2019 12:00:00 AM EST active Artificial Tears 0.2-0.2-1 % eCW1 ([facility]) Glycerin 2 MG/ML / hypromellose 2 MG/ML / Polyethylene Glycol 400 10 MG/ML Ophthalmic Solution Artificial Tears 0.2-0.2-1 % Artificial Tears 0.2-0.2-1 % 07/30/2019 12:00:00 AM EST active Artificial Tears 0.2-0.2-1 % eCW1 ([facility]) Glycerin 2 MG/ML / hypromellose 2 MG/ML / Polyethylene Glycol 400 10 MG/ML Ophthalmic Solution Artificial Tears 0.2-0.2-1 % Artificial Tears 0.2-0.2-1 % 07/30/2019 12:00:00 AM EST active Artificial Tears 0.2-0.2-1 % eCW1 ([facility]) Glycerin 2 MG/ML / hypromellose 2 MG/ML / Polyethylene Glycol 400 10 MG/ML Ophthalmic Solution Artificial Tears 0.2-0.2-1 % Artificial Tears 0.2-0.2-1 % 07/30/2019 12:00:00 AM EST active Artificial Tears 0.2-0.2-1 % eCW1 ([facility]ly [facility]) buspirone hydrochloride 30 MG Oral Tablet BUSPIRONE HCL 07/22/2019 12:00:00 AM EST tablet 60 TAKE ONE TABLET BY MOUTH TWI CE A DAY TAKE ONE TABLET BY MOUTH TWICE A DAY SOLD: 07/22/2019 [facility] 50 mg 07/21/2019 12:00:00 AM [...] MOUTH EVERY EVENING TAKE ONE TABLET BY [facility] EVERY EVENING SOLD: 07/13/2019 [facility] 50 [...] HOURS FOR 10 DAYS SO LD: 06/21/2019 [facility] Losartan Potassium 50 MG Oral [...] type / Coverage type Policy ID Covered green party ID Covered green party's relationship to everett Policy [place] Plan Information [facility] [id number] SP [id number] [facility] [id number] SP [id number] [facility] [id number] SP [id number] [facility] PLAN [facility] [id number] SP [id number] ANS-Medicaid [id number] ANSI-Medicaid [id number] [facility] PLAN [facility] [id number] SP [id number] [facility] PLAN [facility] [id number] SP [id number] [facility] O [id number] S [id number] MEDICAID [id number] SP [id number] Problems, Conditions, and Diagnoses Code Display Name Description Problem Type Effective Dates Data Source(s) F17.210 [id number] Nicotine dependence, cigarettes, uncompli cated Problem 07/30/2019 12:00:00 AM EST eCW1 ([facility]ly [facility]) H04.123 [id number] Dry eyes, bilateral Problem 07/30/2019 12:00 :00 AM EST eCW1 ([facility]ly [facility]) F17.210 [id number] Nicotine dependence, cigarettes, uncompli cated Problem 07/30/2019 12:00:00 AM EST eCW1 ([facility]ly [facility]) H04.123 [id number] Dry eyes, bilateral Problem 07/30/2019 12:00 :00 AM EST eCW1 (Formerly [facility]) Surgeries/Procedures Procedure Description Date Indications Data Source(s) BEHAV CHNG SMOKING 3-10 MIN 07/30/2019 12:00:00 AM EST eCW1 (Formerly [facility]) Social History Code Duration Value Status Description Data Source(s ) Smoking 07/30/2019 12:00:00 AM EST Current Smoker completed Curre nt Smoker eCW1 ([facility]ly [facility]) Smoking 07/30/2019 12:00:00 AM EST Current Smoker completed Curre nt Smoker eCW1 ([facility]ly [facility]) Smoking 07/30/2019 12:00:00 AM EST Current Smoker completed Curre nt Smoker eCW1 ([facility]ly [facility]) Smoking 07/30/2019 12:00:00 AM EST Current Smoker completed Curre nt Smoker eCW1 ([facility]ly [facility]) Smoking 07/30/2019 12:00:00 AM EST Current Smoker completed Curre nt Smoker eCW1 ([facility]ly [facility]) Vital Signs ID Date Data Source UNK Name Value Range Interpretation Code Description Data Source(s) Diastolic blood pressure 80 mm[Hg] 80 mm[Hg] eCW1 ([facility]) Systolic blood pressure 128 mm[Hg] 128 mm[Hg] e CW1 ([facility]ly [facility]) Body temperature 98.3 [degF] 98.3 [degF] eCW1 ( [facility]) Respiratory rate 18 /min 18 /min eCW1 ([facility]) Heart rate 101 /min 101 /min eCW1 ([facility]) Body mass index (BMI) [Ratio] 29.34 kg/m2 29.34 kg/m2 W1 ([facility]) Body height 68 [in_us] 68 [in_us] eCW1 ([facility]) Body weight Measured 193 [lb_av] 193 [lb_av] eC W1 ([facility]ly [facility]) Patient Treatment Plan of Care Planned Activity Planned Date Details Description Data Source (s) Glycerin 2 MG/ML / hypromellose 2 MG/ML / Polyethylene Glycol 400 10 MG/ML Ophthalmic Solution 07/30/2019 12:00:00 AM EST e CW1 ([facility]) Glycerin 2 MG/ML / hypromellose 2 MG/ML / Polyethylene Glycol 400 10 MG/ML Ophthalmic Solution 07/30/2019 12:00:00 AM EST e CW1 ([facility]) Glycerin 2 MG/ML / hypromellose 2 MG/ML / Polyethylene Glycol 400 10 MG/ML Ophthalmic Solution 07/30/2019 12:00:00 AM EST e CW1 ([facility]) Glycerin 2 MG/ML / hypromellose 2 MG/ML / Polyethylene Glycol 400 10 MG/ML Ophthalmic Solution 07/30/2019 12:00:00 AM EST e CW1 ([facility]) Glycerin 2 MG/ML / hypromellose 2 MG/ML / Polyethylene Glycol 400 10 MG/ML Ophthalmic Solution 07/30/2019 12:00:00 AM EST e CW1 ([facility]) Glycerin 2 MG/ML / hypromellose 2 MG/ML / Polyethylene Glycol 400 10 MG/ML Ophthalmic Solution 07/30/2019 12:00:00 AM EST e CW1 ([facility]ly [facility])
[2020-06-28] MEDS ORDERED: FLUORESCEIN OPHTH 1 MG STRIP OS ONE (21:00)
[2020-06-28] MEDS ORDERED: PROPARACAINE 0.5% OPHTH SOL 15ML OS ONE (21:00)
[2020-06-28 22:01] VITALS: BP 131/69
== END 2020-06-28 22:02 | disposition home or self-care (01) ==
LOC: M ED 19:44
DX: T65.91XA Toxic effect of unspecified substance, accidental (unintentional), initial encounter (principal); Y92.9 Unspecified place or not applicable; Y93.9 Activity, unspecified; I10 Essential (primary) hypertension; E78.5 Hyperlipidemia, unspecified; F17.200 Nicotine dependence, unspecified, uncomplicated; Z79.899 Other long term (current) drug therapy

== ENCOUNTER → 2020-09-20 | Outpatient (REF) | payer OTHER ==
[~2020-09-20] MED LIST changes: +ESCI5SOL3 PO
[2020-09-20 13:24] LABS: HEMOGLOBIN A1c 5.3 %
[2020-09-20 13:45] LABS: ALBUMIN 4.1 GM/DL (3.2-5.2); BILIRUBIN,TOTAL 0.3 MG/DL (0.2-1.0); CALCIUM LEVEL 9.1 MG/DL (8.5-10.1); CHOLESTEROL RISK RATIO 3.867 (<5); CREATININE FOR GFR 1.04 MG/DL (0.55-1.30); POTASSIUM SERUM 4.6 MEQ/L (3.5-5.1); TOTAL PROTEIN 7.5 GM/DL (6.4-8.2)
== END ==
LOC: M SFHCPLAZ 10:21
PROVIDERS: ATTEND Physician Assistant
DX: I10 Essential (primary) hypertension (principal); E78.5 Hyperlipidemia, unspecified; E55.9 Vitamin D deficiency, unspecified; Z13.1 Encounter for screening for diabetes mellitus

== ENCOUNTER 2021-01-05 01:15 | Emergency (ER) | payer OTHER ==
[~2021-01-05] VITALS: Ht 172.7 cm; Wt 95.1 kg
[2021-01-05 05:22] LABS: BASO # 0.1 10^3/uL (0.0-0.2); BASO % 1.1 % (0.0-1.0); EOS # 0.1 10^3/uL (0.0-0.5); EOS % 1.2 % (0.0-3.0); HEMATOCRIT 44.4 % (36.0-47.0); HEMOGLOBIN 14.4 g/dl (12.0-15.5); LYMPH # 1.5 10^3/uL (1.5-5.0); LYMPH % 15.6 % (24.0-44.0); MEAN CORPUSCULAR HEMOGLOBIN 28.1 pg (27.0-33.0); MEAN CORPUSCULAR HGB CONC 32.4 g/dl (32.0-36.5); MEAN CORPUSCULAR VOLUME 86.5 fl (80.0-96.0); MONO # 0.5 10^3/uL (0.0-0.8); MONO % 5.6 % (2.0-8.0); NEUTROPHILS # 7.2 10^3/uL (1.5-8.5); NEUTROPHILS % 76.1 % (36.0-66.0); PLATELET COUNT, AUTOMATED 372 10^3/uL (150-450); RED BLOOD COUNT 5.13 10^6/uL (4.00-5.40); WHITE BLOOD COUNT 9.5 10^3/uL (4.0-10.0)
[2021-01-05 05:45] LABS: ALBUMIN 3.9 GM/DL (3.2-5.2); ALT/SGPT 26 U/L (12-78); BILIRUBIN,DIRECT 0.1 MG/DL (0.0-0.2); BILIRUBIN,TOTAL 0.4 MG/DL (0.2-1.0); BLOOD UREA NITROGEN 18 MG/DL (7-18); CALCIUM LEVEL 8.6 MG/DL (8.5-10.1); CARBON DIOXIDE LEVEL 27 MEQ/L (21-32); CHLORIDE LEVEL 105 MEQ/L (98-107); CK-MB VALUE MASS < 1.0 NG/ML (<3.6); CPK CREATINE PHOSPHOKINASE 84 U/L (26-192); CREATININE FOR GFR 1.08 MG/DL (0.55-1.30); FREE T4 0.95 NG/DL (0.76-1.46); GLOMERULAR FILTRATION RATE 57.2 (>51); GLUCOSE, FASTING 120 MG/DL (70-100); LIPASE 131 U/L (73-393); MB/CK RELATIVE INDEX 1.19 (< OR =4); POTASSIUM SERUM 4.2 MEQ/L (3.5-5.1); SODIUM LEVEL 137 MEQ/L (136-145); TOTAL PROTEIN 7.4 GM/DL (6.4-8.2); TROPONIN I < 0.02 NG/ML (< 0.10)
--- NOTE | 2021-01-05 05:52 | REPVR ---
PROCEDURE INFORMATION: Exam: XR Chest Exam date and time: 01/05/2021 4:22 AM Age: 50 years old Clinical indication: Other: Cp; Additional info: Chest pain TECHNIQUE: Imaging protocol: XR of the chest. Views: 2 views. COMPARISON: CR Chest, 2 view PA, Lat 07/29/2015 7:57 PM FINDINGS: Lungs: Unremarkable. No consolidation. Pleural spaces: Unremarkable. No pleural effusion. No pneumothorax. Heart/Mediastinum: Unremarkable. No cardiomegaly. Bones/joints: Unremarkable. IMPRESSION: No acute findings. Electronically signed by: Gelacio Conn On 01/05/2021 05:51:09 AM
--- NOTE | 2021-01-05 06:54 | ECGEPIP ---
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
--- NOTE | 2021-01-05 08:13 | REP ---
INDICATION: irregular menstrual bleeding. COMPARISON: None. TECHNIQUE: Transabdominal and transvaginal scanning were performed. FINDINGS: Uterine dimensions are normal at 8.4 x 3.9 x 4.4 cm. Endometrial echo is 0.8 cm thick and centrally placed. No free fluid is seen in the cul-de-sac. Visualized bladder rollins are smooth. Uterine texture is somewhat heterogeneous. Minimal free fluid is seen. Exam quality is inhibited somewhat by patient body habitus and bowel gas. The right ovary has dimensions of 2.1 x 1.5 x 1.5 cm. The left ovary dimensions are normal as well at 4.1 x 3.4 x 2.9 cm. IMPRESSION: There is a minimal amount of cul-de-sac fluid. Otherwise no significant morphologic abnormality seen.. <Electronically signed by Glenroy Logan > 01/05/21 [id number]
[2021-01-05] MEDS ORDERED: FLAG500T PO (08:31)
[2021-01-05 08:51] VITALS: BP 125/68
== END 2021-01-05 08:53 | disposition home or self-care (01) ==
LOC: M ED 04:36
DX: N93.9 Abnormal uterine and vaginal bleeding, unspecified (principal); N76.0 Acute vaginitis; I10 Essential (primary) hypertension; E78.5 Hyperlipidemia, unspecified; F33.9 Major depressive disorder, recurrent, unspecified; F17.210 Nicotine dependence, cigarettes, uncomplicated

== ENCOUNTER 2021-01-14 22:19 | Emergency (ER) | payer OTHER ==
[~2021-01-14] VITALS: Ht 172.7 cm; Wt 90.9 kg
[~2021-01-14 22:19] MED LIST changes: +FLAG500T PO
[2021-01-14 22:53] LABS: BASO # 0.1 10^3/uL (0.0-0.2); EOS # 0.2 10^3/uL (0.0-0.5); EOS % 1.6 % (0.0-3.0); HEMATOCRIT 40.9 % (36.0-47.0); HEMOGLOBIN 13.4 g/dl (12.0-15.5); LYMPH # 3.6 10^3/uL (1.5-5.0); LYMPH % 36.5 % (24.0-44.0); MEAN CORPUSCULAR HEMOGLOBIN 28.2 pg (27.0-33.0); MEAN CORPUSCULAR HGB CONC 32.8 g/dl (32.0-36.5); MEAN CORPUSCULAR VOLUME 85.9 fl (80.0-96.0); MONO # 0.9 10^3/uL (0.0-0.8); MONO % 8.5 % (2.0-8.0); NEUTROPHILS # 5.2 10^3/uL (1.5-8.5); NEUTROPHILS % 52.1 % (36.0-66.0); PLATELET COUNT, AUTOMATED 388 10^3/uL (150-450); RED BLOOD COUNT 4.76 10^6/uL (4.00-5.40)
[2021-01-14 23:20] LABS: CALCIUM LEVEL 8.2 MG/DL (8.5-10.1); CREATININE FOR GFR 1.15 MG/DL (0.55-1.30); GLOMERULAR FILTRATION RATE 53.2 (>51); POTASSIUM SERUM 4.1 MEQ/L (3.5-5.1)
[2021-01-15] MEDS ORDERED: NS 1,000 ML IV ONE (00:55)
[2021-01-15 05:44] VITALS: BP 164/72
[2021-01-15] MEDS ORDERED: MEDR10TA PO (05:50)
[2021-01-15] MEDS ORDERED: medroxyPROGESTERone 5MG TABLET PO ONE (05:55)
== END 2021-01-15 06:52 | disposition home or self-care (01) ==
LOC: M ED 22:19
DX: N93.8 Other specified abnormal uterine and vaginal bleeding (principal); I10 Essential (primary) hypertension; E78.5 Hyperlipidemia, unspecified; F33.9 Major depressive disorder, recurrent, unspecified; Z79.899 Other long term (current) drug therapy; F17.210 Nicotine dependence, cigarettes, uncomplicated

== ENCOUNTER 2021-02-04 15:21 | Emergency (ER) | payer OTHER ==
[~2021-02-04] VITALS: Ht 172.7 cm; Wt 91.9 kg
[~2021-02-04 15:21] MED LIST changes: +MEDR10TA PO
[2021-02-04 15:56] LABS: BASO # 0.1 10^3/uL (0.0-0.2); BASO % 0.8 % (0.0-1.0); EOS # 0.1 10^3/uL (0.0-0.5); EOS % 0.8 % (0.0-3.0); HEMATOCRIT 44.5 % (36.0-47.0); HEMOGLOBIN 14.7 g/dl (12.0-15.5); LYMPH # 1.9 10^3/uL (1.5-5.0); MEAN CORPUSCULAR HEMOGLOBIN 27.9 pg (27.0-33.0); MEAN CORPUSCULAR VOLUME 84.6 fl (80.0-96.0); MONO # 0.7 10^3/uL (0.0-0.8); MONO % 7.3 % (2.0-8.0); NEUTROPHILS # 6.6 10^3/uL (1.5-8.5); NEUTROPHILS % 70.9 % (36.0-66.0); PLATELET COUNT, AUTOMATED 403 10^3/uL (150-450); RED BLOOD COUNT 5.26 10^6/uL (4.00-5.40); WHITE BLOOD COUNT 9.2 10^3/uL (4.0-10.0)
[2021-02-04 16:22] LABS: BLOOD UREA NITROGEN 13 MG/DL (7-18); CALCIUM LEVEL 9.2 MG/DL (8.5-10.1); CARBON DIOXIDE LEVEL 26 MEQ/L (21-32); CHLORIDE LEVEL 104 MEQ/L (98-107); CREATININE FOR GFR 1.17 MG/DL (0.55-1.30); GLOMERULAR FILTRATION RATE 52.1 (>51); GLUCOSE, FASTING 127 MG/DL (70-100); HCG, SERUM QUANTITATIVE < 1.0 MIU/ML; POTASSIUM SERUM 3.9 MEQ/L (3.5-5.1); SODIUM LEVEL 140 MEQ/L (136-145)
[2021-02-04] MEDS ORDERED: PROV10TA PO (17:23)
[2021-02-04 17:34] VITALS: BP 141/70
[2021-02-05] MEDS ORDERED: medroxyPROGESTERone 5MG TABLET PO SCH (09:00)
== END 2021-02-04 17:37 | disposition home or self-care (01) ==
LOC: M ED 15:21
DX: N93.8 Other specified abnormal uterine and vaginal bleeding (principal); R80.9 Proteinuria, unspecified; I10 Essential (primary) hypertension; F33.9 Major depressive disorder, recurrent, unspecified; F41.9 Anxiety disorder, unspecified; E78.5 Hyperlipidemia, unspecified; Z79.899 Other long term (current) drug therapy; F17.210 Nicotine dependence, cigarettes, uncomplicated

== ENCOUNTER 2021-02-25 07:29 | Emergency (ER) | payer OTHER ==
[~2021-02-25] VITALS: Ht 172.7 cm; Wt 90.9 kg
[~2021-02-25 07:29] MED LIST changes: +PROV10TA PO
[2021-02-25] MEDS ORDERED: SERT50TA29 (07:36)
[2021-02-25 09:18] LABS: HEMATOCRIT 42.6 % (36.0-47.0); HEMOGLOBIN 14.1 g/dl (12.0-15.5); MEAN CORPUSCULAR HEMOGLOBIN 27.6 pg (27.0-33.0); MEAN CORPUSCULAR HGB CONC 33.1 g/dl (32.0-36.5); MEAN CORPUSCULAR VOLUME 83.5 fl (80.0-96.0); PLATELET COUNT, AUTOMATED 367 10^3/uL (150-450); WHITE BLOOD COUNT 7.4 10^3/uL (4.0-10.0)
--- NOTE | 2021-02-25 09:26 | REP ---
INDICATION: dizziness. COMPARISON: None. TECHNIQUE: Helical scanning is acquired. 5 mm axial images were reformatted. Coronal MPR images were generated. FINDINGS: Bone window settings demonstrate an intact bony calvarium. There is no evidence of skull fracture or incidental bony calvarial lesion. The visualized paranasal sinuses appear clear. No intraorbital abnormality is seen. On soft tissue window setting images; the lateral, third, and fourth ventricles are normal in size and position. Garcia-white differentiation pattern is normal above and below the tentorium. There are is no evidence of intracranial hemorrhage. No mass, edema, infarction, or midline shift is seen. No extra-axial fluid collection is appreciated. IMPRESSION: Negative noncontrast head CT. <Electronically signed by Glenroy Logan > 02/25/21 [id number]
[2021-02-25 09:51] LABS: CALCIUM LEVEL 8.9 MG/DL (8.5-10.1); CREATININE FOR GFR 1.1 MG/DL (0.55-1.30); MAGNESIUM LEVEL 2.2 MG/DL (1.8-2.4); POTASSIUM SERUM 4.4 MEQ/L (3.5-5.1); THYROID STIMULATING HORMONE 1.82 uIU/ML (0.358-3.740)
[2021-02-25 10:14] VITALS: BP 145/81
== END 2021-02-25 10:27 | disposition home or self-care (01) ==
LOC: M ED 07:29
DX: F41.9 Anxiety disorder, unspecified (principal); R42 Dizziness and giddiness; I10 Essential (primary) hypertension; E78.5 Hyperlipidemia, unspecified; F33.9 Major depressive disorder, recurrent, unspecified; Z79.899 Other long term (current) drug therapy

== ENCOUNTER → 2021-03-14 | Outpatient (CLI) | payer OTHER ==
[~2021-03-14] MED LIST changes: +SERT50TA29
[2021-03-14 17:58] LABS: FREE T4 0.99 NG/DL (0.76-1.46); THYROID STIMULATING HORMONE 1.55 uIU/ML (0.358-3.740)
[2021-03-14 18:00] LABS: ESTRADIOL 85.1 PG/ML; FOLLICLE STIMULATING HORMONE 17.8 mIU/mL
== END ==
LOC: M PLALAB 14:37
PROVIDERS: ATTEND Obstetrics & Gynecology
DX: N93.9 Abnormal uterine and vaginal bleeding, unspecified (principal)

== ENCOUNTER → 2021-08-16 | Outpatient (CLI) | payer OTHER ==
[~2021-08-16] MED LIST changes: +LOSA50TA28; -LOSA50TA88
[2021-08-16 15:29] LABS: BASO # 0.1 10^3/uL (0.0-0.2); BASO % 1.3 % (0.0-1.0); EOS # 0.1 10^3/uL (0.0-0.5); EOS % 1.8 % (0.0-3.0); HEMATOCRIT 41.2 % (36.0-47.0); HEMOGLOBIN 13.1 g/dl (12.0-15.5); LYMPH % 17.4 % (24.0-44.0); MEAN CORPUSCULAR HEMOGLOBIN 26.8 pg (27.0-33.0); MEAN CORPUSCULAR HGB CONC 31.8 g/dl (32.0-36.5); MEAN CORPUSCULAR VOLUME 84.4 fl (80.0-96.0); MONO # 0.8 10^3/uL (0.0-0.8); MONO % 14.7 % (2.0-8.0); NEUTROPHILS # 3.5 10^3/uL (1.5-8.5); NEUTROPHILS % 63.7 % (36.0-66.0); PLATELET COUNT, AUTOMATED 304 10^3/uL (150-450); RED BLOOD COUNT 4.88 10^6/uL (4.00-5.40); WHITE BLOOD COUNT 5.5 10^3/uL (4.0-10.0)
[2021-08-16 16:03] LABS: ALBUMIN 3.8 GM/DL (3.2-5.2); BILIRUBIN,TOTAL 0.2 MG/DL (0.2-1.0); CALCIUM LEVEL 8.5 MG/DL (8.5-10.1); CHOLESTEROL RISK RATIO 4.282 (<5); CREATININE FOR GFR 1.04 MG/DL (0.55-1.30); FREE T4 0.89 NG/DL (0.76-1.46); GLOMERULAR FILTRATION RATE 59.7 (>51); POTASSIUM SERUM 4.1 MEQ/L (3.5-5.1); THYROID STIMULATING HORMONE 1.81 uIU/ML (0.358-3.740); TOTAL 25(OH) VITAMIN D 51.9 NG/ML (30.0-100.0); TOTAL PROTEIN 6.9 GM/DL (6.4-8.2)
== END ==
LOC: M PLALAB 13:49
PROVIDERS: ATTEND Physician Assistant Medical
DX: E78.5 Hyperlipidemia, unspecified (principal)

== ENCOUNTER 2022-08-29 16:03 | Emergency (ER) | payer OTHER ==
[~2022-08-29] VITALS: Ht 172.7 cm; Wt 92.1 kg
[~2022-08-29 16:03] MED LIST changes: -MEDR10TA PO; +MEDR10TA9 PO; -VITA200015; +VITA200035
[2022-08-29] MEDS ORDERED: LIDO5DIS41 TOP (17:23)
[2022-08-29 17:25] VITALS: BP 157/86
[2022-08-29] MEDS ORDERED: LIDOCAINE 5% (LIDODERM) PATCH TD ONE (17:25)
[2022-08-29] MEDS ORDERED: ACETAMINOPHEN 500 MG TAB PO ONE (17:25)
== END 2022-08-29 17:38 | disposition home or self-care (01) ==
LOC: M ED 16:03
DX: S20.212A Contusion of left front wall of thorax, initial encounter (principal); W01.0XXA Fall on same level from slipping, tripping and stumbling without subsequent striking against object, initial encounter; Y92.009 Unspecified place in unspecified non-institutional (private) residence as the place of occurrence of the external cause; E78.5 Hyperlipidemia, unspecified; I10 Essential (primary) hypertension; F32.A Depression, unspecified; F41.9 Anxiety disorder, unspecified; Z98.51 Tubal ligation status; Z79.899 Other long term (current) drug therapy